=== PATIENT | male | born 1945 | race Caucasian/White ===

== ENCOUNTER → 2021-06-20 10:38 | Outpatient (CLI) | payer MEDICARE, OTHER, SELFPAY ==
[2021-06-20 11:54] LABS: PSA,Total - Annual Screen 4.06 ng/mL (0.00-4.00)
[2021-06-23 07:26] LABS: PSA, Free 0.76 ng/mL
== END ==
PROVIDERS: PCP Student in an Organized Health Care Education/Training Program; Visit Provider Nurse Practitioner Adult Health
DX: R97.20 Elevated prostate specific antigen [PSA] (principal)
CPT/HCPCS: 36415; 84153; 84154; G0103

== ENCOUNTER → 2022-07-28 | Outpatient (CLI) | payer MEDICARE, OTHER, SELFPAY | END | disposition home or self-care (01) | LOC: LAB 11:00 | PROVIDERS: PCP Student in an Organized Health Care Education/Training Program; Referring Provider Urology; Visit Provider Urology | DX: Z12.5 Encounter for screening for malignant neoplasm of prostate (principal) | CPT/HCPCS: 36415; 84153; G0103 ==

== ENCOUNTER → 2022-09-02 | Outpatient (CLI) | payer MEDICARE, OTHER, SELFPAY ==
[2022-09-02 11:00] LABS: PSA,Total- Diagnostic 6.83 ng/mL (0.0-4.0)
== END | disposition home or self-care (01) ==
PROVIDERS: PCP Student in an Organized Health Care Education/Training Program; Referring Provider Urology; Visit Provider Urology
DX: R97.20 Elevated prostate specific antigen [PSA] (principal)
CPT/HCPCS: 36415; 84153

== ENCOUNTER → 2023-03-02 | Outpatient (CLI) | payer MEDICARE, OTHER, SELFPAY ==
[2023-03-03 12:09] LABS: PSA, Free % 12.4 % (.)
== END | disposition home or self-care (01) ==
LOC: LAB 09:40
PROVIDERS: PCP Student in an Organized Health Care Education/Training Program; Referring Provider Urology; Visit Provider Urology
DX: N40.1 Benign prostatic hyperplasia with lower urinary tract symptoms (principal)
CPT/HCPCS: 36415; 84153; 84154

== ENCOUNTER → 2023-04-13 | Outpatient (CLI) | payer MEDICARE, OTHER, SELFPAY ==
--- NOTE | 2023-04-13 | IMM_PTH ---
PATIENT: SALINAS LEROY LOC: [facility] U#:[id number] AGE/SX: 77/M ROOM: RE04/13/[address]: Dr. Shimon Avila MD : 1945 BED: DIS: 04/13/2023 SPEC #: [id number] RECD: 04/15/23 15:05 STATUS: EDGARD REQ #: [id number] HUBERT: 04/13/23 00:[address]: Shimon Avila DEPT: IMMUNOHISTOCHEMISTRY RECD BY: Macrina Luna ENTERED: 04/15/23 15:06 SP TYPE: IMMUNO OTHR DR: Dr. Arben Osuna DO Tissues: A - PROSTATE RIGHT B - PROSTATE RIGHT C - PROSTATE RIGHT Procedures: 34BE12 (add) P40 (add) 34BE12 (initial) PHYSICIAN & INSTITUTION [place] [id number] SPECIMEN INFORMATION: Tissue Source: A - Right prostate apex, B - Right prostate mid, C - Right prostate base Clinical Info: Elevated PSA Specimen Number: [id number] A-C CPT code: 20458, 95086 x5 METHODOLOGY: Deparaffinized sections of prefer/formalin-fixed tissue or PAP/DQ stained slides are incubated with monoclonal/polyclonal antibodies/oligonucleotide probes. Localization is made via biotin free immunoperoxidase method. Appropriate controls are performed and reacted as expected. Results on target cell population are indicated in the following table: RESULTS: ANTIBODY / CLONE RESULT Block A 34BE12 (34BE12) negative P40 (BC28) negative Block B 34BE12 (34BE12) negative P40 (BC28) negative Block C 34BE12 (34BE12) negative P40 (BC28) negative These tests were developed and their performance characteristics determined by [facility]. They may not have been cleared or approved by the U.S. Food and Drug Administration. The FDA has determined that such clearance or approval is not necessary. The above immunohistochemical/dualISH markers are ordered and reviewed by the Pathologist. INTERPRETATION: A. Right prostate, apex, core biopsy: Adenocarcinoma. B. Right prostate, mid, core biopsy: Adenocarcinoma. C. Right prostate, base, core biopsy: Adenocarcinoma. SJ:floyd 04/16/2023
--- NOTE | 2023-04-13 08:00 | PROSBIL_PTH ---
PATIENT: SALINAS LEROY LOC: [facility] U#:[id number] AGE/SX: 77/M ROOM: RE04/13/[address]: Dr. Shimon Avila MD : 1945 BED: DIS: 04/13/2023 SPEC #: [id number] RECD: 04/13/23 16:15 STATUS: EDGARD REVal #: [id number] HUBERT: 04/13/23 08:[address]: Shimon Avila DEPT: SURGICAL PATHOLOGY RECD BY: Kori Casper ENTERED: 04/14/23 10:10 SP TYPE: PROST BX NESTOR DR: Dr. Arben Osuna DO Tissues: A - PROSTATE RIGHT B - PROSTATE RIGHT C - PROSTATE RIGHT D - PROSTATE LEFT E - PROSTATE LEFT F - PROSTATE LEFT Procedures: PROSTATE BX HEADER OPERATION: Prostate biopsy PRE-OP DIAGNOSIS: Elevated PSA TISSUE SUBMITTED: A - Right apex, B - Right mid, C - Right base, D - Left apex, E - Left mid, F - Left base MICROSCOPIC DIAGNOSIS A. Right prostate, apex, core biopsy: Prostatic adenocarcinoma. Patti grade: 3+3=6 Number of cores involved: 1/1 Proportion of tissue involved: <5% Perineural invasion: Not identified. Greatest tumor length: 0.5 cm, discontinuous Focal high-grade prostatic intraepithelial neoplasia (HGPIN). See comment. B. Right prostate, mid, core biopsy: Prostatic adenocarcinoma. Patti grade: 4+3=7 Number of cores involved: 1/2 Proportion of tissue involved: <5% Perineural invasion: Not identified. Greatest tumor length: <0.1 cm Focal high-grade prostatic intraepithelial neoplasia (HGPIN). See comment. C. Right prostate, base, core biopsy: Prostatic adenocarcinoma. [place] grade: 3+3=6 Number of cores involved: 1/2 Proportion of tissue involved: <5% Perineural invasion: Not identified. Greatest tumor length: 0.1 cm Focal high-grade prostatic intraepithelial neoplasia (HGPIN). See comment. D. Left prostate, apex, core biopsy: Prostatic tissue, negative for malignancy. E. Left prostate, mid, core biopsy: Prostatic adenocarcinoma. Patti grade: 4+3=6 Number of cores involved: 1/2 Proportion of tissue involved: ~30% Perineural invasion: Present, focal. Greatest tumor length: 0.5 cm Focal high-grade prostatic intraepithelial neoplasia (HGPIN). F. Left prostate, base, core biopsy: Prostatic adenocarcinoma. Patti grade: 5+4=9 Number of cores involved: 2/2 Proportion of tissue involved: ~90% Perineural invasion: Present, focal. Greatest tumor length: 1.1 cm Focal high-grade prostatic intraepithelial neoplasia (HGPIN). SJ:floyd 04/15/2023 COMMENT A-C. Immunohistochemistry ([id number]) supports the above diagnosis. Case has been reviewed in consultation with Dr. Norris who concurs with the above diagnosis. IDC:AM MICROSCOPIC DESCRIPTION Slides are reviewed. GROSS DESCRIPTION A - Received is one container designated prostate, right apex. The specimen consists of one elongated fragment of light brooks-white soft tissue measuring 1.3 cm in length and 0.1 cm in diameter. The specimen is totally submitted in one cassette. B - Received is one container designated prostate, right mid. The specimen consists of two elongated fragments of light brooks-white soft tissue each measuring 1.0 cm in length and 0.1 cm in diameter. The specimen is totally submitted in one cassette. C - Received is one container designated prostate, right base. The specimen consists of two elongated fragments of light brooks-white soft tissue measuring 0.8 and 1.0 cm in length and 0.1 cm in diameter. The specimen is totally submitted in one cassette. D - Received is one container designated prostate, left apex. The specimen consists of three elongated fragments of light brooks-white soft tissue measuring 0.5 to 1.2 cm in length and 0.1 cm in diameter. The specimen is totally submitted in one cassette. E - Received is one container designated prostate, left mid. The specimen consists of two elongated fragments of light brooks-white soft tissue measuring 0.5 and 1.0 cm in length and 0.1 cm in diameter. The specimen is totally submitted in one cassette. F - Received is one container designated prostate, left base. The specimen consists of two elongated fragments of light brooks-white soft tissue measuring 1.0 and 1.5 cm in length and 0.1 cm in diameter. The specimen is totally submitted in one cassette. / SJ:floyd 04/14/2023 TC:0 CPT: G0146
== END | disposition home or self-care (01) ==
LOC: LABSPEC 16:23
PROVIDERS: PCP Student in an Organized Health Care Education/Training Program; Referring Provider Urology; Visit Provider Urology
DX: C61 Malignant neoplasm of prostate (principal); R97.20 Elevated prostate specific antigen [PSA]
CPT/HCPCS: 88305; 88341; 88342; G0416

== ENCOUNTER → 2023-05-05 | Outpatient (CLI) | payer MEDICARE, OTHER, SELFPAY ==
--- NOTE | 2023-05-05 09:12 | NM_ITS ---
CLINICAL: 77-year-old male with history of recent diagnosis of primary prostate carcinoma. WHOLE BODY 99m Tc MDP RADIONUCLIDE BONE SCINTIGRAPHY COMPARISON: None available FINDINGS: Following the intravenous administration of 26.8 mCi of 99m Tc MDP, whole body bone images reveal: 1. Increased radiopharmaceutical concentration is defined in the lower cervical spine posteriorly on the left, the acromioclavicular and sternoclavicular compartments of both shoulders, the right wrist, the patellofemoral compartments of both knees, the anteromedial femoral compartment of the right knee. 2. Enhanced distribution of the radiotracer is defined in the fourth and fifth lumbar vertebra 3. The remaining skeletal structures are scintigraphically unremarkable with normal-appearing renal images and urinary bladder activity identified. NM/Bone Scan Whole Body IMPRESSION: 1. Increased radiopharmaceutical defined in the cervical spine, bilateral shoulders, right wrist, the knees bilaterally is most consistent with degenerative arthrosis. 2. The uptake noted in the fourth and fifth lumbar vertebra may be secondary to postsurgical change and/or degenerative arthropathy. Plain film radiography correlation may be of benefit. 3. There is no definitive scintigraphic evidence of diffuse osseous skeletal metastatic disease on the current examination. Electronically Signed: Ernie Alonzo, at 20:26 EDT ,
== END | disposition home or self-care (01) ==
LOC: NM 09:10
PROVIDERS: PCP Student in an Organized Health Care Education/Training Program; Referring Provider Urology; Visit Provider Urology
DX: C61 Malignant neoplasm of prostate (principal)
CPT/HCPCS: 78306; A9503

== ENCOUNTER → 2023-05-11 | Outpatient (CLI) | payer MEDICARE, OTHER, SELFPAY ==
--- NOTE | 2023-05-11 13:20 | MRI_ITS ---
MR Pelvis WO/W Contrast 05/11/2023 1:38 PM COMPARISON: None CLINICAL HISTORY: 77 yo man with prostate cancer. TECHNIQUE: Axial T1-weighted and high-resolution axial T2-weighted MR images of the pelvis were obtained as well as diffusion restriction images before and after administration of 17 cc of IV Clariscan. Images were acquired for planning of radiation therapy. DISCUSSION: Heterogeneous appearance of the gland is at least in part due to the known prostate cancer, as well as being consistent with benign prostatic hyperplasia. There is a markedly T2 hypointense indistinct mass in the bilateral posterior peripheral zone as well as part of the posterior transitional zone, from mid apex to mid base measuring approximately 4.1 x 3.1 x 2.1 cm. It is markedly bright on DWI and markedly dark on ADC map. There is 2 mm macrocapsular extension on the right posterolaterally and likely on the left as well. The bilateral seminal vesicles are involved. There is a suspicious 5 mm right pelvic sidewall lymph node and 4 mm left pelvic sidewall lymph node. The bladder is unremarkable. No bone metastases. MRI/Pelvis W/WO Contrast IMPRESSION: 4.1 cm PI-RADS 5 lesion in the bilateral posterior PZ and TZ from mid base to mid apex. -2 mm macrocapsular extension near mid base on the right posterolaterally and likely on the left as well. -Bilateral seminal vesicle involvement. -Suspicious 5 mm right pelvic sidewall and 4 mm left pelvic sidewall lymph nodes. -No bladder or bone involvement Electronically Signed: Johnson Mireles MD at 23:25 EDT ,
[2023-05-11 13:50] LABS: EGFR FINGERSTICK > 60.0000 mL/min (>60)
== END | disposition home or self-care (01) ==
LOC: MRI 13:10
PROVIDERS: PCP Student in an Organized Health Care Education/Training Program; Referring Provider Urology; Visit Provider Urology
DX: C61 Malignant neoplasm of prostate (principal)
CPT/HCPCS: 72197; A9575

== ENCOUNTER 2023-06-10 07:23 | Observation (INO) | payer MEDICARE, OTHER, SELFPAY ==
--- NOTE | 2023-05-28 08:39 | EKG12_ITS ---
Test Reason : PRE OP Blood Pressure : / mmHG Vent. Rate : 066 BPM Atrial Rate : 066 BPM P-R Int : 142 ms QRS Dur : 086 ms QT Int : 374 ms P-R-T Axes : 068 040 078 degrees QTc Int : 392 ms Normal sinus rhythm Normal ECG Confirmed by HAZEL ENRIQUEZ, MEMO ([id number]), staff editor COREEN DESAI ([id number]) on 06/01/2023 8:30:52 AM Referred By: Shimon Avila Confirmed By:JUDITH OLIVA MD
[2023-05-28 09:26] LABS: Hematocrit 43.9 % (40-54); Mean Corp Hgb Conc 34.2 g/dL (32-36); Mean Corpuscular Hgb 29.6 pg (27.0-32.0); Mean Corpuscular Volume 86.6 fL (80-94); Platelet Count 220 K/mm3 (150-450); RBC Distribution Width CV 12.1 % (11.6-14.6); RBC Distribution Width SD 38.3 fl (35.1-43.9); Red Blood Count 5.07 M/mm3 (4.6-6.2)
[2023-05-28 10:09] LABS: Anion Gap 5 (5-15); BUN 18 mg/dL (7-18); BUN/Creat Ratio 17.8 RATIO (10-20); Calcium,Total 9.2 mg/dL (8.5-10.1); Chloride 107 mmol/L (98-107); Creatinine, Serum 1.01 mg/dL (0.70-1.30); EST Glomerular Filtration Rate 76 mL/min (>60); Est Glom Filt Rate - Afr Amer 92 mL/min (>60); Glucose 123 mg/dL (74-106); Potassium 3.9 mmol/L (3.5-5.1); Sodium Level 137 mmol/L (136-145); Thyroid Stim Hormone (TSH) 0.53 uIU/mL (0.358-3.74)
[2023-06-10] VITALS (15 sets, daily range): BP systolic 91–147; BP diastolic 38–88; PULSE 59–77; RESP 16–18; TEMP 36.2–36.9; O2SAT 93–98; BMI 26.9
[2023-06-10] MEDS: Lactated Ringers 1,000 ML 15 ML IV ×3 (06:07→10:30)
--- NOTE | 2023-06-10 07:25 | PCM.HP.STD ---
HPI - General General Date of Service: 06/10/23 Chief Complaint: Prostate cancer HPI Narrative SALINAS LEROY, is a 77 M who presents for radical prostatectomy for prostate cancer [facility] Medical History (Updated 06/10/23 @ 07:[address] Shimon Avila MD) Former smoker High cholesterol History of amputation of toe History of edema Hypertension Thyroid nodule Wears glasses Home Medications alendronate 70 mg tablet 70 mg PO QWEEK 05/27/23 [History Last Taken Unknown] calcium carbonate 600 mg-vitamin D3 5 mcg (200 unit) capsule (Calcium 600 + D(3)) 2 cap PO DAILY 05/27/23 [History Last Taken Unknown] cranberry 500 mg capsule 500 mg PO DAILY 05/27/23 [History Last Taken Unknown] docusate sodium 100 mg capsule (Col-Rite) 100 mg PO DAILY 05/27/23 [History Last Taken Unknown] losartan 50 mg-hydrochlorothiazide 12.5 mg tablet 1 tab PO DAILY 05/27/23 [History Last Taken 06/09/23] multivitamin with minerals-folic acid 400 mcg-lycopene 370 mcg tablet (One-A-Day Men's 50 Plus) 1 tab PO DAILY 05/27/23 [History Last Taken Unknown] multivitamin-folic acid 400 mcg-biotin 2,000 mcg tablet (Ixyl-Vdoq-Oojbf (azldwqyh-ipuza-snjmpu)) 1 tab PO DAILY 05/27/23 [History Last Taken Unknown] simvastatin 40 mg tablet 40 mg PO DAILY 05/27/23 [History Last Taken Unknown] ciprofloxacin HCl 500 mg tablet (Cipro) 500 mg PO BID #20 tabs 06/10/23 [Rx Last Taken Unknown] docusate sodium 100 mg capsule (Colace) 100 mg PO BID #20 caps 06/10/23 [Rx Last Taken Unknown] oxycodone 5 mg tablet 5 mg PO Q6H PRN pain 7 days #14 tabs 06/10/23 [Rx Last Taken Unknown] Allergy/AdvReac Type Severity Reaction Status Date / Time No Known Allergies Allergy Verified 06/10/23 05:43 Surgical History History of back surgery (~06/13/20) Social History Smoking Status: Former smoker Vital Signs Vital Signs Vital Signs: 06/10/23 06:07 06/10/23 06:07 Temperature 98.4 F Temperature Source Temporal Pulse Rate 67 Respiratory Rate 16 Respiratory Pattern Normal Blood Pressure 134/68 H Blood Pressure Mean 90 Blood Pressure Source Monitor Blood Pressure Position Semi-Fowlers Blood Pressure Location Right Arm Pulse Ox 95 Oxygen Delivery Method Room Air Weight Weight: 85 kg Body Mass Index (BMI) 26.9 Results Lab / Micro Data 05/28/23 08:54 05/28/23 08:54
--- NOTE | 2023-06-10 07:26 | PCM.DC ---
Discharge Instructions Diet Discharge Diet: No restrictions, Light diet - advance as tolerated and Soft diet Activity Discharge Activity: Return to Normal Activity and May Not Drive May shower in (days): 1 Lifting Restrictions: No heavy lifting for 6 weeks Dressing / Incision Cleanse incision/area with: Soap & Water Catheter: Castillo to leg bag and Castillo to large bag Drain: [place] Follow Up Care Please Follow Up With: Shimon Avila MD When: call for appt. to remove castillo Test Results: Test results from this visit will be discussed in further detail at your follow-up appointment, if applicable. Discharge Plan Admission Primary Reason for Your Visit: Radical Prostatectomy Attending Provider: Shimon Avila Primary Care Provider: Arben Osuna Discharge Orders/Prescriptions Prescriptions: New oxycodone 5 mg tablet 5 mg PO Q6H PRN (Reason: pain) 7 Days Qty: 14 0RF docusate sodium [Colace] 100 mg capsule 100 mg PO BID Qty: 20 0RF ciprofloxacin HCl [Cipro] 500 mg tablet 500 mg PO BID Qty: 20 0RF Continued alendronate 70 mg tablet 70 mg PO QWEEK losartan-hydrochlorothiazide 50-12.5 mg tablet 1 tab PO DAILY simvastatin 40 mg tablet 40 mg PO DAILY One-A-Day Men's 50 Plus 400-370 mcg tablet 1 tab PO DAILY Pnjo-Ntzp-Hspvq (zu-LT-ymwztu) 400-2,000 mcg tablet 1 tab PO DAILY Calcium 600 + D(3) 600 mg-5 mcg (200 unit) capsule 2 cap PO DAILY docusate sodium [Col-Rite] 100 mg capsule 100 mg PO DAILY cranberry 500 mg capsule 500 mg PO DAILY Rx Instructions: administer with a meal Discontinued tamsulosin 0.4 mg capsule 0.4 mg PO DAILY Other Ambulatory Orders: 12 Lead EKG (Routine) Timeframe: [id number] Location: None Selected Ordered By: Dr. Mau Naranjo Referrals / Follow Up: Shimon Avila MD [Med Staff - Active Staff] - Arben Osuna DO [Primary Care Provider] - Disposition Disposition (needs filled in before D/C Order can be placed): Home, Self Care
[2023-06-10] MEDS: Cefazolin 2 GM in 0.9% Normal Saline 100 ML IV (07:30)
--- NOTE | 2023-06-10 07:30 | PROST_PTH ---
PATIENT: SALINAS LEROY LOC: [facility] U#:[id number] AGE/SX: 77/M [place] [facility] [place]: Dr. Shimon Avila MD : 1945 BED: 1 DIS: 06/11/2023 SPEC #: [id number] RECD: 06/10/23 11:23 STATUS: EDGARD JONAS #: [id number] HUBERT: 06/10/23 07:[address]: Shimon Avila DEPT: SURGICAL PATHOLOGY RECD BY: Kori Casper ENTERED: 06/10/23 12:42 SP TYPE: PROSTATE OTHR DR: Dr. Arben Osuna DO Tissues: A - Lymph node of pelvis, NOS B - Lymph node of pelvis, NOS C - Prostate, NOS Procedures: Surgery Specimen Level V Surgery Specimen Level HEADER OPERATION: Robotic laparoscopic radical prostatectomy PRE-OP DIAGNOSIS: Malignant neoplasm of prostate, elevated PSA, benign prostatic hyperplasia with lower urinary tract symptoms TISSUE SUBMITTED: A. Right pelvic lymph node, B. Left pelvic lymph node, C. Prostate MICROSCOPIC DIAGNOSIS A. Right pelvic lymph nodes, regional dissection: Eight out of eight lymph nodes, negative for metastatic carcinoma. B. Left pelvic lymph nodes, regional dissection: Three out of three lymph nodes, negative for metastatic carcinoma. C. Prostate, radical prostatectomy: Prostatic adenocarcinoma. See cancer summary in the comment section. SJ:floyd 06/15/2023 COMMENT PROSTATE CANCER (RADICAL) SUMMARY: Procedure: Radical Prostatectomy Prostate Size: Weight: 95 gm Size: 5.5 cm transversely, 4.0 cm anterior-posteriorly and 4.5 cm craniocaudally Histologic Type: Acinar adenocarcinoma Histologic Grade: Grade group 5 (Patti score 5+4=9) Intraductal Carcinoma: Present Tumor Quantitation: Estimated percentage of prostate involved by tumor: ~80-90% of the specimen examined. Tumor size: The tumor involves both right and left lobe, apical, middle and basal portion prostate 3.5 cm in greatest dimension apical to craniocaudally. Extraprostatic Extension: Present, focal Location of Extraprostatic Extension: Right posterior lobe Urinary Bladder Neck Invasion: Not identified Seminal Vesicle Invasion: Present, bilateral Lymphvascular Invasion: Not identified Perineural Invasion: Present, focal Margins: Margin involved by invasive carcinoma. Linear length of positive margin: 2.5 cm Focality: Unifocal Location of positive margin: Apical Patti pattern at positive margin: 5+4=9 Treatment Effect: No known presurgical therapy. Regional Lymph Nodes: Number of lymph nodes involved by carcinoma: 0 Total number of lymph nodes examined: 11 Distant metastasis: Not applicable Additional Pathologic Findings: High-grade prostatic intraepithelial neoplasia (HGPIN). Chronic inflammation surrounding the tumor. Nodular prostatic hyperplasia. Ancillary Studies: Not performed Clinical History: Please make reference to previous specimen ([id number]) right prostate, apex, mid and base and left prostate, mid and base, core biopsies with diagnosis of prostatic adenocarcinoma. PATHOLOGIC STAGE: pT3b pN0 pMx The above summary is in compliance with [employer] (CAP) Cancer Protocols Checklist and [place] [employer] Committee on Cancer (AJCC), Staging Manual, 8th Ed. MICROSCOPIC DESCRIPTION Slides are reviewed. GROSS DESCRIPTION A - Received in fixative is one container labeled with the patient's name and designated right pelvic lymph node. The specimen consists of multiple fragments of yellow tissue measuring 5.0 x 5.0 x 1.0 cm. Dissection reveals three brooks nodules measuring 1.0 to 2.5 cm. The nodules are totally submitted in two cassettes as follows: 1 - two nodules, 2 - one nodule. / AM: 06/10/23 The rest of the specimen is submitted in three cassettes, 3-5. / SJ: 06/12/2023 B - Received in fixative is one container labeled with the patient's name and designated left pelvic lymph node. The specimen consists of two fragments of yellow fatty tissue measuring 4.0 x 3.0 x 1.0 cm. The specimen is totally submitted in two cassettes. / AM: 06/10/23 C - Received in fixative is one container labeled with the patient's name and designated prostate. The specimen consists of a radical prostatectomy specimen consisting of prostate and bilateral seminal vesicles and vas deferens. The specimen weighs 95 gm. The prostate measures 5.5 cm transversely, 4.0 cm anterior-posteriorly and 4.5 cm craniocaudally. The basal and posterior portion of the prostate also shows a large amount of fat. The right seminal vesicle measures 2.0 x 1.5 x 1.5 cm and right vas deferens measures 3.0 cm in length and 0.5 cm in diameter. The left seminal vesicle measures 1.0 x 1.0 x 1.0 cm and the left vas deferens measures 2.5 cm in length and 0.5 cm in diameter. The prostate is inked as follows: anterior surface - yellow, posterior surface - black, right lateral surface - blue, left lateral surface - green. The bilateral seminal vesicles and vas deferens are inked as follows: Posterior surface bilateral seminal vesicle and vas deferens - black, anterior surface right seminal vesicle and vas deferens - blue and anterior left seminal vesicle and vas deferens - green. Sections of prostate reveal solid cut surfaces involving posterior lobe of the right and left prostate consistent with involvement by the tumor. Slab Conditioner Supervisor sections are submitted in 23 cassettes as follows: 1?- right seminal vesicle and vas deferens, 2 - left seminal vesicle and vas deferens, 3 & 4 - apical (urethral) margin, enface, 5 & 6 - basal portion of prostate and bladder neck margin, enface, 7-10 - apical portion prostate, 11-16 - middle portion prostate, 17-23 - basal portion prostate. / DONNA:floyd 06/10/2023 TC:0 CPT: 14450, 54481 x2
[2023-06-10] MEDS: Bupivacaine Mpf 0.5% 30 ML VIAL (08:02)
--- NOTE | 2023-06-10 10:40 | OP.PCM_ITS ---
Report of Operation Date of Procedure: 06/10/23 Pre-Operative Diagnosis: Prostate cancer Post-Operative Diagnosis: The same Surgery/Procedure Performed:: Laparoscopic robotic assisted radical prostatectomy and bilateral nerve pelvic lymph node dissection Description of Surgical Findings:: Patient presented to the hospital for treatment of his prostate cancer with radical prostatectomy. In the preoperative setting we discussed the options of management for his prostate cancer including active surveillance, radiation treatments, radioactive seeds, and radical robotic prostatectomy. We discussed the side effects of surgery including the potential to lose erections. We discussed the potential to have bladder control problems with stress incontinence which can be temporary or permanent. We discussed the risk of the surgery including the risk of general anesthetic, risk of bleeding, risk of infection, and risk of formation of hernia either incisional hernia or inguinal hernia. After long discussion with the patient the preoperative setting and also reviewed this in the preop area patient signed the consent form and we proceeded with a radical prostatectomy. Patient was taken back to the operating room he was identified, time out procedure was performed and he was placed supine on the table he underwent general anesthesia with intubation. The abdomen was shaved prepped and draped in usual sterile fashion as well as the penis and testicles. A 16 Bermudian catheter was placed into the bladder with clear return of urine. I then made an incision in the umbilicus and dissected down to the fascia advance a Veress needle into the peritoneal cavity and insufflated the peritoneal cavity with CO2 gas. I then placed a 12 mm trocar above the umbilicus. I then visualized the placement of the rest of the trochars, I placed a right arm robotic trocar, and air seal trocar, a suction port 5 mm trocar. And on the left side I placed 2 robotic arms. Once all the trochars were in placed the patient was put in steep Trendelenburg. And the robot was docked the arms were docked and then I placed the 0 degree camera through the robotic arm and also used a 30 degree camera during certain parts of the case. I used scissors in the right arm, prograsp in the third arm, and a bipolar in the second arm. Initial dissection was to free the sigmoid colon off the lateral wall this was done by meticulously dissecting off the peritoneum and the sigmoid colon off the left lateral wall. This then allowed the prograsp to retract the sigmoid colon out of the pelvis. I then went below the bladder and identified the vas deferens incised the peritoneum over the vas deferens and traced the vas deferens below the bladder to the prostate and identified the right and left vasa deferens. Below behind the vas deferens then the seminal vesicles were identified. I then dissected the seminal vesicle free using pinpoint electrocautery and then we identified the other seminal vesicle and then dissected this using pinpoint electrocautery I then elevated the vas deferens and several vesicles off the prostate and was able to sweep the Denonvilliers' fascia off the prostate posteriorly all the way up to the apex of the prostate. Working laterally I made sure I went as lateral as possible to sweep the Denonilliers' fascia off the posterior aspect of the prostate and worked my way back, I then transected the vas deferens and the left and right side the seminal vesicles were then dissected free. And then I pulled out of the pelvis. At this point the bladder was dropped creating the space of Retzius with the bladder on traction with the fourth arm. Using electrocautery I dissected in the anterior peritoneal fascia and then created the space of Retzius dissecting towards the prostate. The pelvic lymph node dissection was then performed both side. Rhe right pelvic lymph nodes the nodes that were taken on the right side extended from the right iliac artery lateral pelvic sidewall up to the junction of the artery and the lymph nodes and down to the obturator nerve and then also below the sand and gravel plant operator nerve all the lymph nodes were removed during to remove those lymph nodes we used clips and electrocautery to control small blood vessels and also the control lymphatic. I then went to the left side and again did an extensive lymph node dissection starting of the left iliac artery extending the left iliac vein on the lateral sidewall down to the obturator nerve and the left side beyond the sand and gravel plant operator nerve down further behind it cleaning out all the lymphatic tissue all this tissue was sent off as a specimen we use clips and electrocautery during the dissection. At the end we cleaned out all the lymphatic tissue on the right pelvic wall and all the lymphatic tissue in the left pelvic wall. The prostate was then cleaned of the fat over the prostate and the fourth arm was used to retract the bladder and place traction. I then identified the endopelvic fascia that was overlying the prostate on the right side I incised endopelvic fascia and wwept the levator muscles off the prostate all the way to the apex on the right side, I then worked my way anterior to the prostate then transected to the puboprostatic ligament and the underlying dorsal vein complex was not injured. I then went to the other side and identified the endopelvic fascia in the left side incised in a fashion the left side and swept the levator muscles off the prostate on the left side all the way up to the apex the puboprostatic ligament on the left side was then dissected and transected I then freed up the fascia overlying the dorsal vein complex. I then used the prograsp to encircled the dorsal vein complex with the prograsp and then switched over to the right and left needle lead driver and suture ligated the dorsal vein complex above the prograsp. The prograsp was then placed back in the bladder and put back on traction I then identified the junction between the bladder and the prostate and dissected down between the bladder and the prostate untilI came across the catheter we then dissected posteriorly to the bladder and prostate to free the prostate and the bladder off each other and the muscles between the bladder and the prostate was then cauterized to free up the bladder. I then went on top of the prostate and identified the endopelvic fascia on top of the prostate this was incised all the way to the apex and then we swept the endopelvic fascia off the prostate laterally and then identified the plane between endopelvic fascia and the prosthetic pseudocapsule and swept the fascia laterally until reaching the course of the neurovascular bundles and then released the neurovascular bundles off the prostate laterally all the way back in a retrograde fashion back to the junction of the pedicles then the prostate was placed on traction with the fourth arm pulling the prostate laterally identified the pedicle to the prostate between the seminal vesicles and the and the neurovascular bundle and this was taken using sequential small hemolocks. After the pedicle was taken the I then dissected underneath the prostate sweeping the neurovascular bundle off the prostate we able to follow the nice smooth plane between the neurovascular bundle and the pseudocapsule all the way to the apex once this was identified we swept this up all the way up to the apex and there was perfect nerve sparing on the right side. Then went to the left side the prostate identified the endopelvic fascia over the left side of the prostate I incised the endopelvic fascia all the way to the apex and then swept this off laterally I then released the neurovascular bundles on the left side of the prostate sweeping him off the prostate laterally I then elevated the prostate up up with the prostate and traction identified the pedicle to the prostate on the left side and then the pedicles taken with sequential Hem-o-jay clips I then was able to dissected the neurovascular bundle off the left posterior aspect the prostate this was a perfect dissection all the way up on the left side following the pseudocapsule all the way up the left side until we reached the apex of the prostate. After the both the neurovascular bundles has been swept off the posterior to the prostate I then went above and transected the dorsal vein complex there was minimal to no bleeding but then dissected down to the urethra and circumfencial dissected around the urethra I then switched the right and left arm with the needle drivers and I suture-ligated the dorsal vein complex again just to ensure that there was no bleeding from the dorsal v ein complex. I then transected through the urethra with scissors and the prostate was then freed and released off the prostate bed and put an Endo Catch bag. At this point the bladder neck was reconstructed and then an anastomosis was performed between the prostate and the bladder with a 3 oh V-Loc stitch in a running fashion starting from the bladder neck at the 6 o'clock position working to the 12 o'clock position with continuous stitches to complete a perfect anastomosis between the bladder and the prostate. I then placed a new catheter into the bladder, an 18 Bermudian pamunkey tip catheter flushed the bladder and there was no leakage from the anastomosis I put 10 cc in the balloon and pulled it up pulled back gently. I then ensured that there was no bleeding from the dorsal vein complex no bleeding from the neurovascular bundles FloSeal was placed as necessary once hemostasis was ensured and adequate then I placed the bladder back in position in the pelvis the prostate was exchanged to the camera port I closed the air seal port with a 10 12 Magdy Stover stitch. And the extracted the prostate through the umbilicus. The robot was undocked all the ports were removed under direct visualization then closed the extraction site with 0 Vicryl with a CT1 needle once the extraction site was closed. I then closed all the incision with subcuticular stitches with 4-0 Monocryl and then bandages were placed on the incisions catheter was flushed to make sure it was draining well there was no clots and it was crystal clear patient's anesthetic was reversed he was extubated and taken back to the PACU in stable condition all the needles and sponges and instruments were accounted for. Blood loss was minimal and the drain was a 18 Bermudian Florez catheter. No other surgical drain was left. I was present during the entire case. Surgeon: Shimon Avila Type of Anesthesia: General Specimen's removed: prostate and lymph nodes Estimated Blood Loss (mL): 300 Admit VTE Documentation VTE Present on Admission: No VTE Mechan Device Prophylaxis: SCD's VTE Pharm Prophylaxis ordered?: No
--- NOTE | 2023-06-10 11:40 | SUR.PHASEI ---
PATIENT BEGINS C/O PRIMARILY FEELS LIKE STABBING PAIN WHEN I TRY TO TAKE A DEEP BREATH TO LEFT CHEST. DENIES SHORTNESS OF BREATH, NO RADIATING PAIN TO LEFT ARM, SHOULDER BACK, OR JAW, MINIMAL NAUSEA. STATES PAIN IS ONLY WHEN I BREATHE IN. DR MATHUR NOTIFIED, EKG & TROPONIN ORDERED.
[2023-06-10 12:10] LABS: Troponin-I HS 4 pg/mL (3.0-78.0)
[2023-06-10] MEDS: Ketorolac 15 MG/ML Vial IV ×2 (12:13→18:47)
[2023-06-10] MEDS: 0.9% Normal Saline 1,000 ML 125 ML IV ×2 (13:09→21:39)
[2023-06-10] MEDS: Ciprofloxacin 400 MG/200 ML BAG 200 MG IV (18:47)
[2023-06-10] MEDS: Atorvastatin Calcium 20 MG Tablet PO (21:33)
[2023-06-10] MEDS: Docusate Sodium 100 MG Capsule 200 MG PO (21:33)
[2023-06-11] MEDS: Ketorolac 15 MG/ML Vial IV ×2 (00:58→05:49)
[2023-06-11 01:03] VITALS: BP 127/69; PULSE 60; RESP 16; TEMP 36.7; O2SAT 93
[2023-06-11 05:44] VITALS: BP 128/79; PULSE 101; RESP 16; TEMP 36.8; O2SAT 98
[2023-06-11] MEDS: 0.9% Normal Saline 1,000 ML 125 ML IV (05:49)
[2023-06-11] MEDS: Ciprofloxacin 400 MG/200 ML BAG 200 MG IV (06:43)
--- NOTE | 2023-06-11 07:42 | PCM.PN.GU ---
Subjective Subjective Status post radical prostatectomy patient is doing well he can go home today with a catheter to leg bag Objective Data Objective Data Vital Signs: Vital Signs Temp Pulse Resp BP Pulse Ox O2 Del Method O2 Flow Rate 98.3 F 101 H 16 128/79 H 98 Room Air 2 06/11/23 05:44 06/11/23 05:44 06/11/23 05:44 06/11/23 05:44 06/11/23 05:44 06/11/23 05:44 06/10/23 19:51 Oxygen Flow Rate (L/min) 2 Oxygen Delivery Method Room Air Weight: 85 kg Body Mass Index (BMI) 26.9 Intake & Output: Intake and Output for Last 24 Hours 06/09/23 06/10/23 06/11/23 23:59 23:59 23:59 Intake Total 4016 / 4016 1219.75 / 1219.75 Output Total 800 / 1100 300 / 300 Balance 3216 / 2916 919.75 / 919.75 Lab / Micro Data 05/28/23 08:54 05/28/23 08:54 Labs: Laboratory Results - last 24 hr 06/10/23 11:42: Troponin I High Sens 4
[2023-06-11 09:40] VITALS: BP 133/67; PULSE 62; RESP 18; TEMP 37.1; O2SAT 98
[2023-06-11] MEDS: Docusate Sodium 100 MG Capsule 200 MG PO (09:41)
[2023-06-11] MEDS: Losartan Potassium 50 MG Tablet PO (09:41)
[2023-06-11] MEDS: hydroCHLOROthiazide 12.5mg 12.5 MG PO (09:41)
--- NOTE | 2023-06-11 10:05 | PHA.DC.MC.R ---
Pharmacy [facility] has performed discharge medication reconciliation and counseling for this patient. The patient was counseled on the following discharge medications and changes in medications for homegoing were reviewed. 1. Oxycodone 2. Ciprofloxacin 3. Docusate The Reason for Use, instructions for use, and potential side effects were reviewed for all new medications. The patient's questions regarding all of their medications were answered. The patient was able to verbally demonstrate an understanding of their discharge medications. The patient's discharge medication list was reviewed for discrepancies and discrepancies were resolved. Patient was counselled by Sherie Martinez, [place] Candidate Medications at Discharge Home Medications alendronate 70 mg tablet 70 mg PO QWEEK 05/27/23 calcium carbonate 600 mg-vitamin D3 5 mcg (200 unit) capsule (Calcium 600 + D(3)) 2 cap PO DAILY 05/27/23 cranberry 500 mg capsule 500 mg PO DAILY 05/27/23 docusate sodium 100 mg capsule (Col-Rite) 100 mg PO DAILY 05/27/23 losartan 50 mg-hydrochlorothiazide 12.5 mg tablet 1 tab PO DAILY 05/27/23 multivitamin with minerals-folic acid 400 mcg-lycopene 370 mcg tablet (One-A-Day Men's 50 Plus) 1 tab PO DAILY 05/27/23 multivitamin-folic acid 400 mcg-biotin 2,000 mcg tablet (Yqxy-Xyhm-Tzqur (nszfwvai-lrrrs-pjuuyi)) 1 tab PO DAILY 05/27/23 simvastatin 40 mg tablet 40 mg PO DAILY 05/27/23 ciprofloxacin HCl 500 mg tablet (Cipro) 500 mg PO BID #20 tabs 06/10/23 docusate sodium 100 mg capsule (Colace) 100 mg PO BID #20 caps 06/10/23 oxycodone 5 mg tablet 5 mg PO Q6H PRN pain 7 days #14 tabs 06/10/23
--- NOTE | 2023-06-11 10:35 | CASEMGMT ---
Social Work SW spoke w/pt and spouse, let them know that pt does not have POA papers on file, asked them to bring them in as able. Both state understanding. SIMA Coreas
[2023-06-11 11:52] VITALS: BP 123/60; PULSE 60; RESP 18; TEMP 36.7; O2SAT 98
== END 2023-06-11 11:48 | disposition home or self-care (01) ==
LOC: SDC 11:31 → MS3 11:31
PROVIDERS: Anesthesiology; Admitting Provider Urology; PCP Student in an Organized Health Care Education/Training Program; Referring Provider Urology; Visit Provider Urology
PROC: 0VT04ZZ Resection of Prostate, Percutaneous Endoscopic Approach (ICD-10-PCS; CPT 55866; principal; 2023-06-10 07:10)
DX: C61 Malignant neoplasm of prostate (principal); I10 Essential (primary) hypertension; E78.00 Pure hypercholesterolemia, unspecified; Z87.891 Personal history of nicotine dependence; Z79.83 Long term (current) use of bisphosphonates; Z79.899 Other long term (current) drug therapy; E04.1 Nontoxic single thyroid nodule
CPT/HCPCS: 55866; 00865; 36415; 80048; 84443; 84484; 85027; 86850; 86900; 86901; 88307; 88309; 93005; 94668; 96361; 96365; 96366; 96375; 96376; 99221; 99252; J7030; J7120; G0378; G0463; J0744; J2405

== ENCOUNTER → 2023-07-28 | Outpatient (CLI) | payer MEDICARE, OTHER, SELFPAY ==
[2023-07-28 12:50] LABS: PSA,Total- Diagnostic 0.06 ng/mL (0.0-4.0)
== END | disposition home or self-care (01) ==
LOC: LAB 11:03
PROVIDERS: PCP Student in an Organized Health Care Education/Training Program; Referring Provider Nurse Practitioner; Visit Provider Nurse Practitioner
DX: C61 Malignant neoplasm of prostate (principal)
CPT/HCPCS: 36415; 84153

== ENCOUNTER → 2023-10-28 | Outpatient (CLI) | payer MEDICARE, OTHER, SELFPAY ==
--- OUTSIDE RECORDS SUMMARY | 2023-10-28 10:03 | XMS RPT_ITS | CCD ---
Author Name Unknown Address [address] [place] [address] Organization [facility] Care Team Providers Care Laborer Yard Name Role Phone GAY MORA DO Primary Care Physician ([id number] GAY MORA DO Attending Unavailable GAY MORA DO Primary Care Unavailable GAY MORA DO Primary Care Unavailable GAY MORA DO Attending Unavailable GAY MORA DO Primary Care Unavailable GAY MORA DO Attending Unavailable RIO SHERIDAN MD Attending Unavailable GAY MORA DO Primary Care Unavailable Medications Current Medications Medication Drug Class(es) Dates Sig (Normalized) Sig (Original) acetaminophen 500 mg oral capsule (5 sources) Start: 07-09-2020 take 1 capsule by mouth every six hours acetaminophen 500 mg oral capsule See Instructions, cap(s) mg Oral q6hr, 0 Refill(s) Start Date: 07/09/20 Status: Ordered alendronic acid 70 mg oral tablet (6 sources) Bisphosphonate Start: 03-25-2023 End: 09-21-2023 alendronate 70 mg oral tablet Dose : 70 mg = 1 tab(s), Oral, qWeek, # 13 tab(s), 1 Refill(s), Pharmacy: [id number], 177, cm, 03/25/23 8:56:00 EDT, Height, kg, 03/25/23 8:56:00 EDT, Dosing Weight Start Date: 03/25/23 Stop Date: 09/21/23 Status: Ordered Problems Problem Classification Problem Date Documented Da te Episodic/Chronic Anxiety disorders (7 sources) Posttraumatic stress disorder 04-26-2021 Chronic Cancer of prostate (2 sources) Malignant tumor of prostate 05-22-2023 Chronic Diseases of white blood cells (7 sources) Leukocytosis 06-08-2020 Chronic Disorders of lipid metabolism (7 sources) Hyperlipidemia 07-08-2019 Chronic Disorders of teeth and jaw (7 sources) Tooth disorder 08-12-2021 Episodic Essential hypertension (5 sources) Hypertensive disorder 07-08-2019 Chronic Genitourinary symptoms and ill-defined conditions (7 sources) Nocturia 07-08-2019 Episodic Heart valve disorders (10 sources) Aortic valve regurgitation; Translations: [Mitral valve regurgitation] 03-24-2022 Chronic Heart valve disorders (7 sources) Heart murmur 04-26-2021 Episodic Hyperplasia of prostate (7 sources) Benign prostatic hyperplasia 06-08-2020 Chronic Hypertension with complications and secondary hypertension (2 sources) Hypertensive heart disease without congestive heart failure 03-25-2023 Chronic Osteoporosis (7 sources) Osteoporosis 06-29-2021 Chronic Other acquired deformities (7 sources) Lumbar spondylolisthesis 04-30-2020 Episodi c Results Test Name Value Interpretation Reference Range Facil ity Encounters Encounter Date Encounter Type Care Provider Facility Start: 09-17-2023 End: 09-18-2023 ambulatory GAY ALEXSARIKA Facility:B Start: 07-15-2023 End: 07-16-2023 ambulatory GAY MORA DO Facility:B Start: 07-15-2023 End: 07-15-2023 Patient encounter procedure GAY ALEXSARIKA [facility] Start: 07-09-2023 End: 07-10-2023 ambulatory RIO SHERIDAN MD Facility:B Start: 07-09-2023 End: 07-09-2023 Patient encounter procedure RIO SHERIDAN MD [facility] Start: 03-18-2023 End: 03-19-2023 ambulatory GAY ABBY Facility:B Start: 03-18-2023 End: 03-18-2023 Patient encounter procedure GAY ABBY [facility] Start: 05-12-2022 End: 05-12-2022 Patient encounter procedure MS NIRALI JORGE [facility] Start: 03-24-2022 End: 03-24-2022 Patient encounter procedure GAY MORA DO [facility] Start: 11-02-2021 End: 11-02-2021 Patient encounter procedure FRANCIS GUERRA WEDDING DAY COORDINATOR-MILL LABORER [facility] Start: 08-13-2021 End: 08-13-2021 Patient encounter procedure GAY MORA DO [facility] Procedures Date Procedure Procedure Detail Performing Clinician Start: 06-10-2023 Prostatectomy RIO RAMIREZ MD Start: 06-19-2020 Back structure, excl uding neck (body structure) GAY MORA DO Amputation of toe GAY CATA HERNÁNDEZ DO Immunizations Immunization Date Immunization Notes Care Provider Fa cili 08-07-2022 influenza virus vaccine, unspecified formulation GAY MORA DO [facility] 08-12-2021 COVID-19, mRNA, LNP- S, PF, 100 mcg/ 0.5 mL dose; Translations: [Moderna COVID-19 Vaccine] GAY MORA DO [facility] 07-31-2021 influenza virus vaccine, unspecified formulation GAY MORA DO [facility] Payers Date Payer Category Payer Medicare [id number] 2023 Private Health Insurance [id number] 1945 Unknown [id number] 2.16.8 [id number] 1945 Unknown [id number] 2.16.8 [id number] 1945 Unknown [id number] 2.16.8 [id number] 1945 Unknown [id number] [id number] [id number] Social History Date Type Detail Facility Start: 06-07-2021 Ex-smoker (finding) [facility] Sex Assigned At [facility] Clinical Notes 11-02-2021 to 07-15-2023 LaboratoryLaboratoryRadiologyLaboratory Note Date & Type Note Facility 07-15-2023 Note ORIGINAL EXAMINATION: BONE DENSITOMETRY 07/15/2023 3:05 pm TECHNIQUE: A bone density dual x-ray absorptiometry (DEXA) scan was performed of the left forearm and left hip. COMPARISON: 06/28/2021. HISTORY: ORDERING SYSTEM PROVIDED HISTORY: Reason for Exam: Osteoporosis Screening FINDINGS: T Score Left Femoral Neck: -1.8 Left Femoral Neck: 0.686 (g/cm2) T Score Left Hip: -0.8 Left Hip: 0.919 (g/cm2) T Score Left Forearm: 0.4 Left Forearm: 0.848 (g/cm2) BMD Change from previous Hip: 8.5% BMD change from previous forearm:-3.7% FRAX: 10 year fracture risk assessment Major osteoporotic fracture: 7.7% Hip fracture: 2.6% IMPRESSION: Osteopenia by WHO criteria. *By the World Health Organization criteria: (Comparing with young normal sex matched population) - Normal: T-score at or above -1 SD (standard deviation) - Osteopenia: T-score between -1 and -2.5 SD - Osteoporosis: T-score at or below -2.5 SD Interpreted by: Eduardo Zuluaga DO Preliminary Report By: Eduardo Zuluaga DO Electronically signed By Eduardo Zuluaga DO Dictated Date: 07/15/2023 4:02:58 PM Prelim Date: 07/15/2023 4:04:36 PM Sign Date: 07/15/2023 4:04:36 PM Ordering Provider: GAY MORA [facility] 11-02-2021 HCoV 229E RNA VEDA+non-probe Ql (Nph) Not Detected *NA* (11/02/21 10:00 AM) AH Auto Viro/Sero SS Evaluation + Plan note Future Appointments Appointment Date:10/21/2021 09:30:00 AM Scheduled Provider:GAY MORA DO Location:[facility] Appointment Type:PC OV Diagnostic Tests PendingTestosterone, Free and Total 08/13/21 [facility] Evaluation + Plan note Future Appointments Appointment Date:03/24/2022 09:00:00 AM Scheduled Provider:GAY MORA DO Location:[facility] Appointment Type:PC OV [facility] Evaluation + Plan note Future Appointments Appointment Date:06/11/2022 09:00:00 AM Scheduled Provider:GAY MORA DO Location:[facility] Appointment Type:PC Wellness Medicare Appointment Date:09/24/2022 09:00:00 AM Scheduled Provider:GAY MORA DO Location:[facility] Appointment Type:PC OV Follow Up [facility] Evaluation + Plan note Future Appointments Appointment Date:03/25/2023 09:00:00 AM Scheduled Provider:GAY MORA DO Location:[facility] Appointment Type:PC OV Future Scheduled TestsMicroalbumin Level Urine 09/24/22 [facility] Evaluation + Plan note Future Appointments Appointment Date:09/24/2023 09:00:00 AM Scheduled Provider:GAY MORA DO [facility] Type:PC OV Future Scheduled [id number] Hemoglobin 10/02/23Complete Blood Count 10/02/23Lipid Profile 10/02/23Albumin/Creatinine Ratio, Random Urine 10/02/23Microalbumin Level Urine 09/24/22Complete Metabolic Panel 10/02/23BD Bone Density DEXA Axial Skeleton 07/03/23 [facility] Evaluation + Plan note Future Appointments Appointment Date:09/24/2023 09:00:00 AM Scheduled Provider:GAY MORA DO Location:[facility] Appointment Type:PC OV Future Scheduled [id number] Hemoglobin 10/02/23Complete Blood Count 10/02/23Lipid Profile 10/02/23Albumin/Creatinine Ratio, Random Urine 10/02/23Microalbumin Level Urine 09/24/22Complete Metabolic Panel 10/02/23 [facility] Hospital course Narrative No data available for this section [facility] Hospital Discharge instructions No data available for this section [facility] Progress note No data available for this section [facility] Summary Purpose Family History No Family History Records Found Advance Directives No Advanced Directives Records Found Additional Source Comments Care Team (unrecognized sect ion and content) Personnel Name: GAY MORA DO Address: [address] [place] [address]- Care Team Personnel Name: GAY MORA DO Position: P4 Physician - Primary Care Member Role: Primary Care Physician Address: Address: [address] [place] [address]- Care Team Related Persons Name: JAMIE LEROY Address: [address] [place] [address] [place] Care Team Personnel Name: GAY MORA DO Position: P4 Physician - Primary Care Member Role: Primary Care Physician Address: Address: [address] [place] [address]- Name: SILVESTRE PAEZ MD Position: P3 Physician - Urologist Member Role: Urologist Address: Address: [address] [place] [address]- [place] Name: RIO SHERIDAN MD Position: P3 Physician - Endocrinology Member Role: Geochemistry Teacher Address: Address: [address] [place] [address]- [place] Care Team Related Persons Name: JAMIE LEROY Address: Home [address] [place] [address] Care Team Personnel Name: GAY MORA DO Position: P4 Physician - Primary Care Member Role: Primary Care Physician Address: Address: [address] [place] [address]- Name: SILVESTRE PAEZ MD Position: P3 Physician - Urologist Member Role: Urologist Address: Address: [address] [place] [address]- Name: RIO SHERIDAN MD Position: P3 Physician - Endocrinology Member Role: Geochemistry Teacher Address: Address: [address] [place] [address] [place] [address]- Care Team Related Persons Name: JAMIE LEROY Address: [address] Care Team (unrecognized sect ion and content) Care Team Personnel Name: GAY MORA DO Position: P4 Physician - Primary Care Med Service: Active Provider Member Role: Primary Care Physician Address: Address: [address] [place] [address] Care Team Related Persons Name: JAMIE LEROY Address: [address] (unrecognized sect ion and content) No Status Records Found INFORMATION SOURCE (unrecogn ized section and content) FOR RECORDS PERTAINING TO PATIENTS WHO ARE OR HAVE BEEN ENROLLED IN A CHEMICAL DEPENDENCY/SUBSTANCEABUSE PROGRAM, SOME INFORMATION MAY BE OMITTED. This clinical summary was aggregated from multiple sources. Caution should be exercised in using it in the provision of clinical care. This summary normalizes information from multiple sources, and as a consequence, information in this document may materially change the coding, format and clinical context of patient data. In addition, data may be omitted in some cases. CLINICAL DECISIONS SHOULD BE BASED ON THE PRIMARY CLINICAL RECORDS. [employer] provides no warranty or guarantee of the accuracy or completeness of information in this document.
== END | disposition home or self-care (01) ==
LOC: LAB 09:24
PROVIDERS: PCP Student in an Organized Health Care Education/Training Program; Referring Provider Nurse Practitioner; Visit Provider Nurse Practitioner
DX: C61 Malignant neoplasm of prostate (principal)
CPT/HCPCS: 36415; 84153

== ENCOUNTER → 2023-11-25 | Outpatient (CLI) | payer MEDICARE, OTHER, SELFPAY ==
--- NOTE | 2023-11-25 13:10 | MRI_ITS ---
EXAMINATION: MR Prostate WO/W Contrast COMPARISON: 05/11/2023 CLINICAL HISTORY: 77 yo M s/p prostatectomy for prostate cancer TECHNIQUE: Standard prostate MR protocol was used before and after administration of 16 cc of IV Clariscan. FINDINGS: Postoperative changes status post prostatectomy. No evidence of residual recurrent disease. Seminal vesicles: Surgically absent. Lymph nodes: Prominent 5 mm right pelvic sidewall lymph node. Bones: No suspicious lesions in the field of view. MRI/Pelvis W/WO Contrast IMPRESSION: Prominent 5 mm right pelvic sidewall lymph node. Otherwise, no evidence of recurrent or metastatic disease in the pelvis. Electronically Signed: Johnson Mireles MD at 16:22 EST ,
[2023-11-25 14:06] LABS: CREATININE FINGERSTICK < 1.0 mg/dL (0.70-1.30); EGFR FINGERSTICK > 60.0000 mL/min (>60)
--- OUTSIDE RECORDS SUMMARY | 2023-11-25 17:45 | XMS RPT_ITS | CCD ---
Author Name Unknown Address [address] [place] [address] Organization [facility] Care Team Providers Care Electrician Apprentice [employer] Name Role Phone GAY MORA DO Primary [...] qWeek, # 13 tab(s), 1 Refill(s), Pharmacy: [id number], 177, cm, 03/25/23 8:56:00 EDT, [...] 07-15-2023 Patient encounter procedure GAY ALEXSARIKA [facility] Start: 07-09-2023 End: 07-10-2023 ambulatory RIO SHERIDAN MD Facility:B Start: 07-09-2023 End: 07-09-2023 Patient encounter procedure RIO SHERIDAN MD [facility] Start: 03-18-2023 End: 03-19-2023 ambulatory GAY ABBY Facility:B Start: 03-18-2023 End: 03-18-2023 Patient encounter procedure GAY ABBY [facility] Start: 05-12-2022 End: 05-12-2022 Patient encounter procedure MS NIRALI JORGE [facility] Start: 03-24-2022 End: 03-24-2022 Patient encounter procedure GAY MORA DO [facility] Start: 11-02-2021 End: 11-02-2021 Patient encounter procedure FRANCIS GUERRA STOCK SPECULATOR-UNDERWRITING MANAGER [facility] Start: 08-13-2021 End: 08-13-2021 Patient encounter procedure GAY MORA DO [facility] Procedures Date Procedure Procedure Detail Performing Clinician Start: 06-10-2023 Prostatectomy RIO RAMIREZ MD Start: 06-19-2020 Back structure, excl uding neck (body structure) GAY MORA DO Amputation of toe GAY CATA HERNÁNDEZ DO Immunizations Immunization Date Immunization Notes Care Provider Fa cili 08-07-2022 influenza virus vaccine, unspecified formulation GAY MORA DO [facility] 08-12-2021 COVID-19, mRNA, LNP- S, PF, 100 mcg/ 0.5 mL dose; Translations: [Moderna COVID-19 Vaccine] GAY MORA DO [facility] 07-31-2021 influenza virus vaccine, unspecified formulation GAY MORA DO [facility] Payers Date Payer Category Payer Medicare [id number] 2023 Private Health Insurance [id number] 1945 Unknown [id number] 2.16.8 [id number] 1945 Unknown [id number] 2.16.8 [id number] 1945 Unknown [id number] 2.16.8 [id number] 1945 Unknown [id number] 2.16.8 [id number] Social History Date Type Detail Facility Start: 06-07-2021 Ex-smoker (finding) [facility] Sex Assigned At [facility] Clinical Notes 11-02-2021 to 07-15-2023 LaboratoryLaboratoryRadiologyLaboratory Note [...] 07/15/2023 4:04:36 PM Ordering Provider: GAY MORA [facility] 11-02-2021 HCoV 229E RNA VEDA+non-probe Ql (Nph) Not Detected *NA* (11/02/21 10:00 AM) AH Auto Viro/Sero SS Evaluation + Plan note Future Appointments Appointment Date:10/21/2021 09:30:00 AM Scheduled Provider:GAY MORA DO Location:[facility] Appointment Type:PC OV Diagnostic Tests PendingTestosterone, Free and Total 08/13/21 [facility] Evaluation + Plan note Future Appointments Appointment Date:03/24/2022 09:00:00 AM Scheduled Provider:GAY MORA DO Location:[facility] Appointment Type:PC OV [facility] Evaluation + Plan note Future Appointments Appointment Date:06/11/2022 09:00:00 AM Scheduled Provider:GAY MORA DO Location:[facility] Appointment Type:PC Wellness Medicare Appointment Date:09/24/2022 09:00:00 AM Scheduled Provider:GAY MORA DO Location:[facility] Appointment Type:PC OV Follow Up [facility] Evaluation + Plan note Future Appointments Appointment Date:03/25/2023 09:00:00 AM Scheduled Provider:GAY MORA DO Location:[facility] Appointment Type:PC OV Future Scheduled TestsMicroalbumin Level Urine 09/24/22 [facility] Evaluation + Plan note Future Appointments Appointment Date:09/24/2023 09:00:00 AM Scheduled Provider:GAY MORA DO [facility] Appoint[facility] Type:PC OV Future Scheduled [id number] Hemoglobin 10/02/23Complete Blood Count 10/02/23Lipid Profile 10/02/23Albumin/Creatinine Ratio, Random Urine 10/02/23Microalbumin Level Urine 09/24/22Complete Metabolic Panel 10/02/23BD Bone Density DEXA Axial Skeleton 07/03/23 [facility] Evaluation + Plan note Future Appointments Appointment Date:09/24/2023 09:00:00 AM Scheduled Provider:GAY MORA DO Location:[facility] Appointment Type:PC OV Future Scheduled [id number] Hemoglobin 10/02/23Complete Blood Count 10/02/23Lipid Profile 10/02/23Albumin/Creatinine Ratio, Random Urine 10/02/23Microalbumin Level Urine 09/24/22Complete Metabolic Panel 10/02/23 [facility] Hospital course Narrative No data available for this section [facility] Hospital Discharge instructions No data available for this section [facility] Progress note No data available for this section [facility] Summary Purpose Family History No Family History Records Found Advance Directives No Advanced Directives Records Found Additional Source Comments Care Team (unrecognized sect ion and content) Personnel Name: GAY MORA DO Address: [address] [place] [address]- Care Team Personnel Name: GAY MORA DO Position: P4 Physician - Primary Care Member Role: Primary Care Physician Address: Address: [address] [place] [address]- Care Team Related Persons Name: JAMIE LEROY Address: [address] [place] [address] [place] Care Team Personnel Name: GAY MORA DO Position: P4 Physician - Primary Care Member Role: Primary Care Physician Address: Address: [address] [place] [address]- Name: SILVESTRE PAEZ MD Position: P3 Physician - Urologist Member Role: Urologist Address: Address: [address] [place] [address]- [place] Name: RIO SHERIDAN MD Position: P3 Physician - Endocrinology Member Role: Optometric Assistant Address: Address: [address] [place] [address]- [place] Care Team Related Persons Name: JAMIE LEROY Address: Home [address] [place] [address] Care Team Personnel Name: GAY MORA DO Position: P4 Physician - Primary Care Member Role: Primary Care Physician Address: Address: [address] [place] [address]- Name: SILVESTRE PAEZ MD Position: P3 Physician - Urologist Member Role: Urologist Address: Address: [address] [place] [address]- Name: RIO SHERIDAN MD Position: P3 Physician - Endocrinology Member Role: Optometric Assistant Address: Address: [address] [place] [address] [place] [address]- Care Team Related Persons Name: JAMIE LEROY Address: [address] Care Team (unrecognized sect ion and content) Care Team Personnel Name: GAY MORA DO Position: P4 Physician - Primary Care Med Service: Active Provider Member Role: Primary Care Physician Address: Address: [address] [place] [address] Care Team Related Persons Name: JAMIE LEROY Address: [address] (unrecognized sect ion and content) No [...] BE BASED ON THE PRIMARY CLINICAL RECORDS. [employer] provides no warranty or guarantee of the accuracy or completeness of information in this document.
== END | disposition home or self-care (01) ==
LOC: MRI 13:03
PROVIDERS: PCP Student in an Organized Health Care Education/Training Program; Referring Provider Student in an Organized Health Care Education/Training Program; Visit Provider Student in an Organized Health Care Education/Training Program
DX: C61 Malignant neoplasm of prostate (principal); R97.21 Rising PSA following treatment for malignant neoplasm of prostate
CPT/HCPCS: 72197; A9575

== ENCOUNTER → 2024-02-01 | Outpatient (CLI) | payer MEDICARE, OTHER, SELFPAY ==
[2024-02-01 13:52] LABS: PSA,Total- Diagnostic < 0.01 ng/mL (0.0-4.0)
== END | disposition home or self-care (01) ==
LOC: LAB 12:16
PROVIDERS: PCP Student in an Organized Health Care Education/Training Program; Referring Provider Nurse Practitioner; Visit Provider Nurse Practitioner
DX: C61 Malignant neoplasm of prostate (principal)
CPT/HCPCS: 36415; 84153

== ENCOUNTER → 2024-05-10 | Outpatient (CLI) | payer MEDICARE, OTHER, SELFPAY ==
[2024-05-10 12:31] LABS: PSA,Total- Diagnostic < 0.01 ng/mL (0.0-4.0)
== END | disposition home or self-care (01) ==
LOC: LAB 11:16
PROVIDERS: PCP Student in an Organized Health Care Education/Training Program; Visit Provider Urology
DX: C61 Malignant neoplasm of prostate (principal)
CPT/HCPCS: 36415; 84153

== ENCOUNTER 2024-09-06 11:53 | Emergency (ER) | payer MEDICARE, OTHER, SELFPAY ==
[2024-09-06 11:54] VITALS: BP 140/82; PULSE 70; RESP 16; TEMP 36; O2SAT 100; BMI 25.5
[2024-09-06 12:00] VITALS: O2SAT 98
--- NOTE | 2024-09-06 12:31 | EDS_ITS ---
HPI HPI - Fall History of Present Illness Chief Complaint: Laceration Informant: patient Occured/Mechanism Occurred: Today Mechanism/Context: Yes same level fall and Yes trip Usually ambulates: Without assistance Pain/Injury Pain Location: upper extremity (Left hand) Quality of Pain: - (No pain) Worsened by: Nothing Relieved by: Nothing Narrative Narrative: Patient presents with left thumb and index finger lacerations that occurred today. Patient states he tripped and fell. Patient states he landed on his left hand. Patient states his last tetanus was within 5 years. Patient denies any paresthesias or weakness. Patient denies any pain. Patient denies any other injuries. Patient states the bleeding stopped after several minutes of pressure. [facility] Medical History Malignant neoplasm of prostate Wears glasses Thyroid nodule High cholesterol History of edema Former smoker Hypertension Home Medications ?Medication ?Instructions ?Recorded ?Last Taken ?Type alendronate 70 mg tablet 70 mg PO QWEEK 05/27/23 Unknown History calcium 600 mg (as 2 cap PO DAILY 05/27/23 Unknown History carbonate)-vitamin D3 5 mcg (200 unit) capsule (Calcium 600 + D(3)) multivitamin with minerals-folic 1 tab PO DAILY 05/27/23 Unknown History acid 400 mcg-lycopene 370 mcg tablet (One-A-Day Men's 50 Plus) multivitamin-folic acid 400 1 tab PO DAILY 05/27/23 Unknown History mcg-biotin 2,000 mcg tablet (Zjvt-Xuxv-Xqrla (osstiafs-hpicv-wxybcc)) simvastatin 40 mg tablet 40 mg PO DAILY 05/27/23 Unknown History losartan 50 mg tablet 50 mg PO DAILY 11/10/23 Unknown History cranberry 500 mg capsule 500 mg PO DAILY 11/12/23 Unknown History docusate sodium 50 mg capsule 50 mg PO DAILY 11/12/23 Unknown History (Stool Softener) Allergy/AdvReac Type Severity Reaction Status Date / Time No Known Allergies Allergy Verified 09/06/24 12:04 Family History Mother Myocardial infarction Sister Breast cancer Grandfather Goiter Prostate cancer Other Diabetes Surgical History H/O prostate biopsy History of radical prostatectomy History of amputation of toe History of back surgery (~06/13/20) Social History Smoking Status: Former smoker Tobacco: How many years used: 10 alcohol intake: never substance use type: does not use caffeine: Yes (3 servings per day) ROS ROS ED Constitutional Constitutional ED: Denies chills or fever(s) Eyes Eyes: Denies blurry vision or change in vision ENT ENT ED: Denies rhinorrhea or sore throat Cardiovascular Cardiovascular: Denies chest pain or palpitations Respiratory/Chest Respiratory/Chest: Denies cough or dyspnea Gastrointestinal Gastrointestinal: Denies nausea or vomiting Genitourinary Genitourinary ED: Denies dysuria or hematuria Musculoskeletal Musculoskeletal: Denies back pain or neck pain Integumentary Denies abscess or rash Neurologic Neurologic: Denies headache(s) or weakness Allergic/Immunologic Allergic/Immunologic ED: Denies mouth swelling or urticaria EXAM Physical Exam Const Vital Signs: 09/06/24 11:54 09/06/24 12:00 Temperature 96.8 F L Temperature Source Temporal Pulse Rate 70 Respiratory Rate 16 Respiratory Effort Normal Respiratory Depth Normal Respiratory Pattern Normal Blood Pressure 140/82 H Blood Pressure Mean 101 Pulse Ox 100 98 Oxygen Delivery Method Room Air Room Air Positive well nourished and well developed General Appearance ED: well developed and NAD HEENT Reports normocephalic atraumatic Neck full ROM and supple Neuro oriented x3, CN's II-XII intact bilaterally, moves all extremities, no focal motor deficits and no sensory deficits noted [place] Coma Scale: document GCS findings Spontaneous Obeys Commands Oriented 15 Sensorium / Orientation: alert Motor Exam: strength 5/5 throughout Psych mental status grossly normal and thought process normal Skin Skin Narrative: There is a 1 cm full-thickness curvilinear flap laceration over the radial aspect of the IP joint of the left thumb. There is moderate gapping of the wound margins. There are no foreign bodies noted. There is no active bleeding noted. There are multiple superficial linear abrasions over the tip of the left index finger. There is no gapping of the wound margins. There is no active bleeding noted. There is no surrounding erythema or warmth. There is full range of motion of the MP, PIP, and DIP joints of the left index finger and full range of motion of the IP and MP joints of the left thumb. Sensation was intact to light touch in all digits. Capillary refills less than 2 seconds in all digits. MDM MDM MDM Narrative Medical decision making narrative: The patient was advised of the need for repair of the left thumb laceration. Patient was agreeable with this. The left thumb was cleaned and anesthetized with 1% lidocaine via digital block. The wound was closed with 2 simple interrupted #4-0 nylon sutures under sterile technique. Patient tolerated procedure well. The abrasions over the tip of the left index finger were cleaned and closed with Dermabond skin adhesive. Patient tolerated procedure well. Patient was instructed to keep the wounds clean and dry. Patient was instructed to avoid Neosporin, bacitracin, triple antibiotic ointment, or any Vaseline-based ointment to the index finger as this will breakdown the Dermabond. Patient was instructed to follow-up with his primary care physician in 5 to 7 days for wound recheck and suture removal. Patient was instructed to return if worse in any way. Patient understood and was agreeable with the plan. All questions were answered. Procedures Lacerations Left thumb: Length: 1 cm Depth: Sub Q Shape: Flap Prep: Sterile Conditions and Chlorhexadine Laceration repair: Digital block, Irrigated, Lidocaine, Nerve block, Skin sutures and Wound explored Irrigated (ml): 100 Number of Sutures/[place]: 2 Suture Information: Ethilon, Simple and 4-0 Discharge Plan Triage Chief Complaint: Laceration Other Complaint: Fall ED Provider: Alvaro Dominguez Dx/Rx/DC Orders Clinical Impression: Laceration of left thumb, Abrasion of left index finger, initial encounter, Fall Instructions: ED Laceration, Hand: All Closures Prescriptions: No Action losartan 50 mg tablet 50 mg PO DAILY cranberry 500 mg capsule 500 mg PO DAILY Rx Instructions: administer with meals Stool Softener 50 mg capsule 50 mg PO DAILY alendronate 70 mg tablet 70 mg PO QWEEK simvastatin 40 mg tablet 40 mg PO DAILY One-A-Day Men's 50 Plus 400-370 mcg tablet 1 tab PO DAILY Duwf-Laef-Nxukl (sv-QR-cqcjsj) 400-2,000 mcg tablet 1 tab PO DAILY Calcium 600 + D(3) 600 mg-5 mcg (200 unit) capsule 2 cap PO DAILY Primary Care Provider: Arben Osuna Referrals: Arben Osuna DO [Primary Care Provider] - 7 Days for suture removal Print Language: [place] Disposition Disposition: Home, Self Care
[2024-09-06] MEDS: Lidocaine 1% (20 ml mdv) 20 ML Vial INFILT (12:43)
[2024-09-06 14:52] VITALS: BP 138/71; PULSE 68; RESP 16; TEMP 36.4; O2SAT 98
== END 2024-09-06 15:16 | disposition home or self-care (01) ==
PROVIDERS: Emergency Provider Emergency Medicine; PCP Student in an Organized Health Care Education/Training Program; Visit Provider Emergency Medicine
DX: S61.012A Laceration without foreign body of left thumb without damage to nail, initial encounter (principal); W18.09XA Striking against other object with subsequent fall, initial encounter; E78.00 Pure hypercholesterolemia, unspecified; S60.411A Abrasion of left index finger, initial encounter; Z79.899 Other long term (current) drug therapy; Z87.891 Personal history of nicotine dependence
CPT/HCPCS: 12001; 99284

== ENCOUNTER → 2025-02-06 | Outpatient (CLI) | payer MEDICARE, OTHER, SELFPAY ==
[2025-02-06 15:51] LABS: PSA,Total- Diagnostic < 0.02 ng/mL (0.00-4.00)
== END | disposition home or self-care (01) ==
LOC: LAB 14:07
PROVIDERS: PCP Student in an Organized Health Care Education/Training Program; Referring Provider Nurse Practitioner; Visit Provider Nurse Practitioner
DX: C61 Malignant neoplasm of prostate (principal)
CPT/HCPCS: 36415; 84153

== ENCOUNTER → 2025-08-14 | Outpatient (CLI) | payer MEDICARE, OTHER, SELFPAY ==
[2025-08-14 11:37] LABS: PSA,Total- Diagnostic < 0.02 ng/mL (0.00-4.00)
== END | disposition home or self-care (01) ==
LOC: LAB 10:38
PROVIDERS: Student in an Organized Health Care Education/Training Program; PCP Student in an Organized Health Care Education/Training Program; Referring Provider Urology; Visit Provider Urology
DX: C61 Malignant neoplasm of prostate (principal); R97.21 Rising PSA following treatment for malignant neoplasm of prostate
CPT/HCPCS: 36415; 84153